=== PATIENT | male | born 1975 | race Caucasian/White ===

== ENCOUNTER 2017-02-18 20:46 | Emergency (ER) | payer OTHER ==
[2017-02-18 20:53] VITALS: TEMP 97.1
--- NOTE | 2017-02-18 21:28 | ED ---
General Adult HPI - General Chief complaint: Chest Pain Stated complaint: chest pain Time Seen by Provider: 02/18/17 20:54 Source: patient, RN notes reviewed, old records reviewed Mode of arrival: wheelchair Limitations: no limitations - History of Present Illness Initial comments: This is a 41-year-old male to the ER for evaluation of chest pain or palpitations. Vision does admit to being. Patient's very worried, states he took some marijuana today. Patient has history of A. fib. Patient states he has been oppositional medication for quite some time. Patient denies any fevers. No cough or congestion or shortness of breath. Patient is so dry lips tingling in his extremities and is also taking marijuana earlier this afternoon. Patient's concern for his heart - Related Data Home Medications Medication Instructions Recorded Confirmed Aspirin [Adult Low Dose Aspirin EC] 81 mg PO DAILY 02/18/17 02/18/17 Budesonide [Pulmicort Flexhaler] 2 puff INHALATION RT-BID 02/18/17 02/18/17 Escitalopram [Lexapro] 40 mg PO DAILY 02/18/17 02/18/17 Levalbuterol Tartrate [Xopenex Hfa 1 puff INHALATION RT-Q6H PRN 02/18/17 Inhaler] Potassium 99 mg PO DAILY 02/18/17 02/18/17 Rosuvastatin [Crestor] 20 mg PO DAILY 02/18/17 02/18/17 buPROPion HCL [Wellbutrin SR] 150 mg PO BID 02/18/17 02/18/17 Allergies Allergy/AdvReac Type Severity Reaction Status Date / Time No Known Allergies Allergy Verified 02/18/17 20:53 Review of Systems ROS Statement: Those systems with pertinent positive or pertinent negative responses have been documented in the HPI. ROS Other: All systems not noted in ROS Statement are negative. Past Medical History Past Medical History: Atrial Fibrillation, Asthma History of Any Multi-Drug Resistant Organisms: None Reported Past Surgical History: Hernia Repair Additional Past Surgical History / Comment(s): testicular removal at age 1 Past Psychological History: Anxiety, Depression Smoking Status: Never smoker Past Alcohol Use History: Daily Past Drug Use History: Marijuana General Exam Limitations: no limitations General appearance: alert, in no apparent distress, anxious Head exam: Present: atraumatic, normocephalic, normal inspection Eye exam: Present: normal appearance, PERRL, EOMI. Absent: scleral icterus, conjunctival injection, periorbital swelling ENT exam: Present: normal exam, mucous membranes moist Neck exam: Present: normal inspection. Absent: tenderness, meningismus, lymphadenopathy Respiratory exam: Present: normal lung sounds bilaterally. Absent: respiratory distress, wheezes, rales, rhonchi, stridor Cardiovascular Exam: Present: regular rate, normal rhythm, normal heart sounds. Absent: systolic murmur, diastolic murmur, rubs, gallop, clicks GI/Abdominal exam: Present: soft, normal bowel sounds. Absent: distended, tenderness, guarding, rebound, rigid Extremities exam: Present: normal inspection, full ROM, normal capillary refill. Absent: tenderness, pedal edema, joint swelling, calf tenderness Back exam: Present: normal inspection Neurological exam: Present: alert, oriented X3, CN II-XII intact Psychiatric exam: Present: normal affect, normal mood Skin exam: Present: warm, dry, intact, normal color. Absent: rash Course Vital Signs 02/18/17 20:48 Temperature 97.1 F L Pulse Rate 102 H Respiratory 18 Rate Blood Pressure 142/79 O2 Sat by Pulse 100 Oximetry - Reevaluation(s) Reevaluation #1: 02/18/17 22:18 Patient spoke with at length regarding symptoms, questions are answered Reevaluation #2: 02/18/17 22:18 Patient's symptoms remained improved EKG Findings - EKG Comments: EKG Findings:: EKG shows normal sinus rhythm rate of 79, OH 122, QRS 82, QTc 458 Medical Decision Making - Medical Decision Making 38 female tear with history of atrial fibrillation coming in with marijuana use , anxiety attack, no significant chest pain no A. fib. Patient can be discharged home - Lab Data Result diagrams: 02/18/17 21:46 02/18/17 21:46 Lab Results 02/18/17 02/18/17 02/18/17 Range/Units 21:46 21:46 21:46 WBC 9.1 (3.8-10.6) k/uL RBC 4.92 (4.30-5.90) m/uL Hgb 15.2 (13.0-17.5) gm/dL Hct 46.7 (39.0-53.0) % MCV 94.9 (80.0-100.0) fL MCH 31.0 (25.0-35.0) pg MCHC 32.6 (31.0-37.0) g/dL RDW 14.9 (11.5-15.5) % Plt Count 265 (150-450) k/uL Neutrophils % 83 % Lymphocytes % 10 % Monocytes % 4 % Eosinophils % 2 % Basophils % 0 % Neutrophils # 7.6 (1.3-7.7) k/uL Lymphocytes # 0.9 L (1.0-4.8) k/uL Monocytes # 0.4 (0-1.0) k/uL Eosinophils # 0.2 (0-0.7) k/uL Basophils # 0.0 (0-0.2) k/uL Sodium 138 (137-145) mmol/L Potassium 4.0 (3.5-5.1) mmol/L Chloride 101 (98-107) mmol/L Carbon Dioxide 30 (22-30) mmol/L Anion Gap 7 mmol/L BUN 15 (9-20) mg/dL Creatinine 0.94 (0.66-1.25) mg/dL Est GFR (MDRD) Af Amer >60 (>60 ml/min/1.73 sqM) Est GFR (MDRD) Non-Af >60 (>60 ml/min/1.73 sqM) Glucose 121 H (74-99) mg/dL Calcium 10.0 (8.4-10.2) mg/dL Magnesium 1.8 (1.6-2.3) mg/dL Total Bilirubin 0.5 (0.2-1.3) mg/dL AST 25 (17-59) U/L ALT 40 (21-72) U/L Alkaline Phosphatase 73 (38-126) U/L Total Creatine Kinase 55 (55-170) U/L CK-MB (CK-2) 0.3 (0.0-2.4) ng/mL CK-MB (CK-2) Rel Index 0.5 Troponin I <0.012 (0.000-0.034) ng/mL Total Protein 7.3 (6.3-8.2) g/dL Albumin 4.3 (3.5-5.0) g/dL Disposition Clinical Impression: Chest pain, Atypical chest pain, Anxiety, Atrial fibrillation Disposition: HOME SELF-CARE Condition: Good Instructions: A-fib (Atrial Fibrillation) (ED) Referrals: Nonstaff,Physician [Primary Care Provider] - 1-2 days
[2017-02-18] MEDS ORDERED: ONDANSETRON 4 MG/2 ML VIAL IVP STA (21:36)
[2017-02-18] MEDS ORDERED: SODIUM CHLORIDE 0.9% 1,000 ML IV STA (21:36)
[2017-02-18] MEDS ORDERED: LORazepam 2 MG/ML INJ IV STA (21:36)
[2017-02-18] MEDS: LORazepam 1 MG TAB PO STA ×2 (21:48→21:52)
[2017-02-18 21:55] LABS: Basophils % (A) 0 %; Eosinophils # (A) 0.2 k/uL (0-0.7); Eosinophils % (A) 2 %; HCT 46.7 % (39.0-53.0); HGB 15.2 gm/dL (13.0-17.5); Lymphocytes # (A) 0.9 k/uL (1.0-4.8); Lymphocytes % (A) 10 %; MCHC 32.6 g/dL (31.0-37.0); MCV 94.9 fL (80.0-100.0); Monocytes # (A) 0.4 k/uL (0-1.0); Monocytes % (A) 4 %; Neutrophils # (A) 7.6 k/uL (1.3-7.7); Neutrophils % (A) 83 %; Platelet Count 265 k/uL (150-450); RBC 4.92 m/uL (4.30-5.90); RDW 14.9 % (11.5-15.5); WBC 9.1 k/uL (3.8-10.6)
[2017-02-18 22:10] LABS: ALT 40 U/L (21-72); AST 25 U/L (17-59); Albumin 4.3 g/dL (3.5-5.0); Alkaline Phosphatase 73 U/L (38-126); Anion Gap 7 mmol/L; Blood Urea Nitrogen 15 mg/dL (9-20); Carbon Dioxide 30 mmol/L (22-30); Chloride 101 mmol/L (98-107); Glucose 121 mg/dL (74-99); Magnesium 1.8 mg/dL (1.6-2.3); Sodium 138 mmol/L (137-145); Total Bilirubin 0.5 mg/dL (0.2-1.3); Total Protein 7.3 g/dL (6.3-8.2)
[2017-02-18 22:15] LABS: Creatine Kinase 55 U/L (55-170)
[2017-02-18 22:29] LABS: Creatine Kinase MB 0.3 ng/mL (0.0-2.4); Troponin I <0.012 ng/mL (0.000-0.034)
[2017-02-18 23:41] VITALS: BP 143/75; PULSE 72; RESP 20
== END 2017-02-18 23:42 | disposition home or self-care (01) ==
LOC: EC 20:46
DX: I48.91 Unspecified atrial fibrillation (principal); F41.9 Anxiety disorder, unspecified; K13.0 Diseases of lips; R20.2 Paresthesia of skin; J45.909 Unspecified asthma, uncomplicated; F32.9 Major depressive disorder, single episode, unspecified; Z79.82 Long term (current) use of aspirin; Z79.51 Long term (current) use of inhaled steroids; Z79.899 Other long term (current) drug therapy; Z53.29 Procedure and treatment not carried out because of patient's decision for other reasons
CPT/HCPCS: 36415; 93005; 80053; 82550; 82553; 83735; 84484; 85025; 99285; 96374; 96361; J2060